=== PATIENT | female | born 1990 | race Caucasian/White ===

== ENCOUNTER → 2020-09-19 | Outpatient (CLI) | payer OTHER ==
[~2020-09-19] MED LIST: BACTROBAN OINT22 GM EXT; BENADRYL 25MG C25 MG PO; COLACE100 MG PO; IBUPROFEN600 MG PO; MACROBID 100 M100 MG PO; PYRIDIUM100 MG PO
== END ==
LOC: RAD 11:57
DX: R05 Cough (principal)
CPT/HCPCS: 71046

== ENCOUNTER 2020-12-07 20:26 | Emergency (ER) | payer OTHER ==
[2020-12-07] MEDS ORDERED: IBUPROFEN800 MG PO (22:58)
== END 2020-12-07 23:11 | disposition home or self-care (01) ==
LOC: ER1 20:26
DX: S60.221A Contusion of right hand, initial encounter (principal); E03.9 Hypothyroidism, unspecified; Z90.49 Acquired absence of other specified parts of digestive tract; Z90.89 Acquired absence of other organs; Z88.0 Allergy status to penicillin; Z88.1 Allergy status to other antibiotic agents; F17.200 Nicotine dependence, unspecified, uncomplicated; W19.XXXA Unspecified fall, initial encounter; Y92.009 Unspecified place in unspecified non-institutional (private) residence as the place of occurrence of the external cause
CPT/HCPCS: 73130; 99283

== ENCOUNTER → 2021-03-24 | Outpatient (CLI) | payer OTHER ==
[~2021-03-24] VITALS: Ht 152.4 cm; Wt 129.7 kg
[~2021-03-24] MED LIST changes: +IBUPROFEN800 MG PO
== END ==
LOC: EROP 15:00
DX: U07.1 COVID-19 (principal)
CPT/HCPCS: 96365